=== PATIENT | male | born 1975 | race Two or more races ===

== ENCOUNTER 2018-02-06 11:20 | Emergency (ER) | payer OTHER ==
[~2018-02-06] VITALS: Ht 172.7 cm; Wt 78.5 kg
[2018-02-06] MEDS ORDERED: SIMVASTATIN10 MG PO (11:47)
[2018-02-06] MEDS ORDERED: LOSARTAN-HCTZ1 EACH PO (11:47)
[2018-02-06] MEDS ORDERED: NORFLEX100MG PO (15:27)
[2018-02-06] MEDS ORDERED: KETO10TA2 PO (15:27)
== END 2018-02-06 16:00 | disposition home or self-care (01) ==
LOC: ER 11:20
DX: R10.31 Right lower quadrant pain (principal)